=== PATIENT | female | born 1995 | race Caucasian/White ===

== ENCOUNTER → 2017-12-23 | Outpatient (CLI) | payer OTHER ==
--- NOTE | 2017-12-23 17:33 | DIAGNOSTIC IMAGING REPORT ---
EXAMINATION: PELVIC ULTRASOUND (transabdominal and endovaginal scanning) CLINICAL HISTORY: PELVIC PAIN COMPARISON STUDY: None FINDINGS: The uterus measured 7.7 x 2.9 x 3.6 cm.. The endometrial stripe measured 5 mm. An IUD is visualized within the endometrial cavity.. The right ovary measured 23 x 30 x 18 mm. The left ovary measured 31 x 14 x 12 mm. There is no ultrasonographic evidence of ovarian torsion. It should be noted that ovarian torsion can be present with normal Doppler ultrasonographic findings. There was no evidence of pathologic free pelvic fluid. IMPRESSION: 1. An IUD is visualized within the endometrial cavity. 2. No uterine or ovarian abnormalities identified Electronically signed by: Ministerio Latham M.D. 12/23/2017 5:31 PM Dictated Date/Time: 12/23/2017 5:30 PM
== END | disposition home or self-care (01) ==
LOC: C.ULTR 16:21
PROVIDERS: ATTEND Nurse Practitioner Women's Health
DX: R10.2 Pelvic and perineal pain (principal)